=== PATIENT | male | born 1965 | race Caucasian/White ===

== ENCOUNTER 2017-08-02 17:45 | Inpatient (IN) | payer OTHER ==
--- NOTE | 2017-08-02 18:09 | PDOC ---
History of Present Illness - General History Source: Patient Exam Limitations: No Limitations - History of Present Illness Initial Comments: 08/02/17 19:03 Patient is a 52 year old male with a significant past medical history of who presents to the ED with complaints of left knee pain that began 2 days ago. Patient reports getting left knee surgery in [place]. He reports being prescribed pain Celebrex medication for knee but was instructed to double up on dosage. Patient states being 2 days without celebrex medication due to pharmacy not resupplying due to 30 day refill not being completed. He reports getting next dosage of medication friday morning after Physician sent new prescription to pharmacy. He reports left knee pain began night while at home. He reports knee increased in pain and redness friday afternoon. Patient is unable to put full weight onto left knee. Denies chest pain, SOB. Denies nausea, vomiting. Denies fevers, chills. Denies secondary trauma to left knee. Denies any other symptoms. Allergies: None Social history: Lives with . Former smoker. No alcohol. No illicit drugs. Surgical history: Left whole need surgery. PMD: None <Dru Tsai - Last Filed: 08/02/17 19:03> <Stephany Lopes - Last Filed: 08/03/17 08:51> - General Chief Complaint: Revisit,Wound Recheck Stated Complaint: LEFT KNEE WOUND CHECK Time Seen by Provider: 08/02/17 17:47 Past History <Dru Tsai - Last Filed: 08/02/17 19:03> - Past Medical History Anemia: No Asthma: No Cancer: No Cardiac Disorders: No CVA: No COPD: No CHF: No Dementia: No Diabetes: No GI Disorders: No Disorders: No HTN: Yes Hypercholesterolemia: No Liver Disease: No Seizures: No Thyroid Disease: No - Surgical History Abdominal Surgery: No Appendectomy: No Cardiac Surgery: No Cholecystectomy: No Lung Surgery: No Neurologic Surgery: No Orthopedic Surgery: Yes (ORIF Right Radius,Preston Knee Arthroscopies) - Suicide/Smoking/Psychosocial Hx Smoking History: Former smoker Have you smoked in the past 12 months: No If you are a former smoker, when did you quit?: 1998 Hx Alcohol Use: Yes ("3 OR 4 BEERS A NIGHT") Drug/Substance Use Hx: No Substance Use Type: Alcohol Hx Substance Use Treatment: No <Stephany Lopes - Last Filed: 08/03/17 08:51> - Past Medical History Allergies/Adverse Reactions: Allergies Allergy/AdvReac Type Severity Reaction Status Date / Time No Known Allergies Allergy Verified 08/02/17 18:03 Home Medications: Ambulatory Orders Hydrocodone/Acetaminophen [Lortab 10-325 mg Tablet] 1 each PO Q8H PRN 07/03/16 Lisinopril/Hydrochlorothiazide [Lisinopril-Hctz 20-12.5 mg Tab] 1 each PO DAILY 07/03/16 Famotidine [Pepcid -] 20 mg PO BID 05/26/17 Celecoxib [Celebrex] 200 mg PO BID 08/02/17 Docusate Sodium [Colace -] 100 mg PO BID 08/02/17 Review of Systems - Review of Systems Able to Perform ROS?: Yes Comments:: 08/02/17 19:04 GENERAL/CONSTITUTIONAL: No fever or chills. No weakness. HEAD, EYES, EARS, NOSE AND THROAT: No change in vision. No ear pain or discharge. No sore throat. GASTROINTESTINAL: No nausea, vomiting, diarrhea or constipation. GENITOURINARY: No dysuria, frequency, or change in urination. CARDIOVASCULAR: No chest pain or shortness of breath. RESPIRATORY: No cough, wheezing, or hemoptysis. MUSCULOSKELETAL: +Left knee pain. No joint or muscle swelling or pain. No neck or back pain. SKIN: No rash NEUROLOGIC: No headache, vertigo, loss of consciousness, or change in strength/ sensation. ENDOCRINE: No increased thirst. No abnormal weight change. HEMATOLOGIC/LYMPHATIC: No anemia, easy bleeding, or history of blood clots. ALLERGIC/IMMUNOLOGIC: No hives or skin allergy. All Other Systems: Reviewed and Negative <Dru Tsai - Last Filed: 08/02/17 19:03> *Physical Exam - Vital Signs Last Vital Signs Temp Pulse Resp BP Pulse Ox 98.2 F 88 17 139/96 98 08/02/17 17:46 08/02/17 17:46 08/02/17 17:46 08/02/17 17:46 08/02/17 17:46 - Physical Exam Comments: 08/02/17 19:08 GENERAL: Awake, alert, and fully oriented, in no acute distress HEAD: No signs of trauma EYES: PERRLA, EOMI, sclera anicteric, conjunctiva clear ENT: Auricles normal inspection, hearing grossly normal, nares patent, oropharynx clear without exudates. Moist mucosa NECK: Normal ROM, supple, no lymphadenopathy, JVD, or masses LUNGS: Breath sounds equal, clear to auscultation bilaterally. No wheezes, and no crackles HEART: Regular rate and rhythm, normal S1 and S2, no murmurs, rubs or gallops ABDOMEN: Soft, nontender, normoactive bowel sounds. No guarding, no rebound. No masses EXTREMITIES: +Left leg redness and heat from proximal incision through the incision to the mid tibia. +Edema in left lower leg, trace but pitting. +Hot to touch. +Ambulate with limp with bailey. +Drainage at the distal end of incision. No lymphangitic spread proximally. no edema. No clubbing or cyanosis. No cords, NEUROLOGICAL: +Walk with limp Cranial nerves II through XII grossly intact. Normal speech, SKIN: Warm, Dry, normal turgor, no rashes or lesions noted. <Dru Tsai - Last Filed: 08/02/17 19:03> ED Treatment Course - LABORATORY CBC & Chemistry Diagram: 08/03/17 06:00 08/02/17 19:05 <Stephany Lopes - Last Filed: 08/03/17 08:51> Medical Decision Making - Medical Decision Making 08/02/17 18:15 a/p: 52yo male with recent L knee replacement with dr. salinas -now with redness and serous drainage from the wound -renes from proximal incision down to mid tibia -swelling of the knee -no fluctuance or crepitus -case discussed with DR. Salinas who will be in to eval the patient 08/02/17 18:31 Dr. Salinas at the bedside 08/02/17 18:[address] Salinas who requests the patient be admitted to [facility] for IV abx. <Stephany Lopes - Last Filed: 08/03/17 08:51> *DC/Admit/Observation/Transfer - Attestations Scribe Attestion: 08/02/17 19:08 Documentation prepared by Dru Tsai, acting as emergency medical technician/driver for Stephany Lopes DO, MD/. <Dru Tsai - Last Filed: 08/02/17 19:03> - Discharge Dispostion Admit: Yes - Attestations Physician Attestion: 08/03/17 08:51 I, Dr. Stephany Lopes DO, attest that this document has been prepared under my direction and personally reviewed by me in its entirety. I further attest, that it accurately reflects all work, treatment, procedures and medical decision -making performed by me. <Stephany Lopes - Last Filed: 08/03/17 08:51> Diagnosis at time of Disposition: Cellulitis of knee, left - Discharge Dispostion Condition at time of disposition: Good
[2017-08-02] MEDS ORDERED: VANCOMYCIN 1 GRAM (PRE-DOCKED) 1,000 MG/250 ML BAG IVPB ONE (18:55)
--- NOTE | 2017-08-02 19:08 | PDOC ---
*Physical Exam - Vital Signs Last Vital Signs Temp Pulse Resp BP Pulse Ox 98.2 F 88 17 139/96 98 08/02/17 17:46 08/02/17 17:46 08/02/17 17:46 08/02/17 17:46 08/02/17 17:46 ED Treatment Course - LABORATORY CBC & Chemistry Diagram: 08/02/17 19:05 08/02/17 19:05 Progress Note - Progress Note Progress Note: Care of this patient was transferred to mo at [address] Lopes. Patient is a 52-year-old male who is status post knee surgery. Patient comes in with a cellulitis of his knee. Patient was seen by the orthopedist and a workup was initiated prior to his admission for IV antibiotics. Patient's workup showed a normal white count with no left shift. His chemistries were remarkable with the exception of a very mildly elevated glucose and slightly decreased sodium. Patient will be made to do an inpatient bed. Patient was given vancomycin here in the emergency room. *DC/Admit/Observation/Transfer Diagnosis at time of Disposition: Cellulitis of knee, left - Discharge Dispostion Condition at time of disposition: Good Admit: Yes - Referrals - Patient Instructions - Post Discharge Activity
[2017-08-02] MEDS ORDERED: VANCOMYCIN 1,000 MG VIAL (RESTRICTED TO ID ONLY) ONE (19:10)
[2017-08-02 19:47] LABS: ALBUMIN 3.3 g/dl (3.5-5.0); ALK PHOS 163 U/L (32-92); ANION GAP 6 (8-16); BILIRUBIN,TOTAL 1.5 mg/dl (0.2-1.0); CALCIUM 8.9 mg/dl (8.4-10.2); CO2 27 mmol/L (22-28); CREATININE 0.6 mg/dl (0.6-1.3); GLUCOSE,RANDOM 111 mg/dl (74-106); SGOT/AST 43 U/L (10-42); SGPT/ALT 26 U/L (10-40)
[2017-08-02 19:58] LABS: BASOPHIL 4.8 % (0-2.0); EOSINOPHIL 2.9 % (0-4.5); MCH 35.6 pg (25.7-33.7); MCHC 33.8 g/dl (32.0-35.9); MEAN CELL VOLUME 105.2 fl (80-96); MEAN PLT VOLUME 8.4 fl (7.5-11.1); PLATELET COUNT 122 K/MM3 (134-434); RDW 12.6 % (11.9-15.9); WHITE BLOOD COUNT 7.3 K/mm3 (4.0-10.8)
[2017-08-02 20:21] LABS: ACTIVATED PTT 32.6 SECONDS (24.0-38.9)
[2017-08-02 20:27] LABS: INR 1.59 (0.82-1.09); PROTHROMBIN TIME (PATIENT) 17.6 SEC (10.2-13.0)
[2017-08-02] MEDS ORDERED: ACETAMINOPHEN PO PRN (21:25)
[2017-08-02] MEDS ORDERED: HYDROCODONE PO PRN (21:25)
[2017-08-02] MEDS ORDERED: [UNRECOGNIZED DRUG - OTHER] PO PRN (21:25)
[2017-08-02 21:54] LABS: PH,URINE 5.5 (4.5-8); URINE APPEARANCE Clear; URINE BILIRUBIN Negative (NEGATIVE); URINE BLOOD Negative (NEGATIVE); URINE GLUCOSE (UA) Negative (NEGATIVE); URINE KETONE Negative (NEGATIVE); URINE LEUK ESTERASE Negative (NEGATIVE); URINE NITRITE Negative (NEGATIVE); URINE PROTEIN Negative (NEGATIVE)
[2017-08-02 21:55] LABS: URINE COLOR YELLOW
--- NOTE | 2017-08-02 22:07 | HP ---
Admitting History and Physical - Admission Chief Complaint: left knee cellulitis History of Present Illness: 52 yo obese M w hx of htn, hep c (planning tx), left knee replacement, right forearm fracture s/p repair, collar bone fracture, left knee arthroscopic surgery x 2, right knee arthroscopic surgery who presents to the Er for worsening swelling, pain, drainage and redness to left knee. Patient reports onset of symptoms 3 days ago after working out his left leg on a machine. he was prescribed dicloxacillin by his surgeon on Friday with little improvement. He states he has 4-5/10 dull pain to the left knee which is relieved with oxycodone. he also reports getting a Left leg venous US 1.5 weeks ago which was negative since stopping ASA. He reports having mild left calf pain for several days. He denies any associated nausea, vomiting, fevers, chills , diarrhea. He denies sob, chest pain, heart palps, dizziness. PMH/PSH- htn, hep c (planning tx), left knee replacement, right forearm fracture s/p repair, collar bone fracture, left knee arthroscopic surgery x 2, right knee arthroscopic surgery Social- 1 drink nightly. denies recreation drugs Famhx- NC Pex General- in nad, alert, obese Hent- at/nc, brigitte, neck supple, trachea midline Resp- no cough, no ronchi, no cyanosis, no accessory muscle use, no ronchi, no wheeze Cards- S1s2 heard, no JVD, left lower leg edema +2 GI- non-tender, no guarding, no rebound, no distention Musk- limited arom left knee, knee swelling and redness Neuro- cn2-12 grossly intact, speech clear, no facial droop Psych- cooperative, no agitation skin- open area to left lower knee with scabbing, increased warmth and redness from proximal knee to upper tibia, no drainage PCP- DR Merritt, [facility]- Dr Archer Ros neg except for HPI Prob list Left lower leg cellulitis HTN Hyponatremia A/P- 52 yo obese M w hx of htn, hep c (planning tx), left knee replacement, right forearm fracture s/p repair, collar bone fracture, left knee arthroscopic surgery x 2, right knee arthroscopic surgery who presents to the Er for worsening swelling, pain and redness to left knee found to have left lower leg cellulitis. 1. Left lower leg cellulitis s/p knee replacement- Started on Vanco. Seen by Dr Archer (ortho) in ER. Knee xray and doppler of leg pending. Continue pain control, leg elevation. Monitor inflammatory markers. F/U cultures. ID consult pending. 2. HTN ( controlled)- Cont home meds 3. Hyponatremia (mild)- Possibly med induced(HCTZ). Monitor BMP. DVT prophy R leg SCD, OOB Hep SQ FEN Low salt Dispo- >2mn stay for acute cellulitis of leg lower leg. History Source: Patient Limitations to Obtaining History: No Limitations - Smoking History Smoking history: Former smoker Have you smoked in the past 12 months: No If you are a former smoker, when did you quit?: 1998 - Alcohol/Substance Use Hx Alcohol Use: Yes ("3 OR 4 BEERS A NIGHT") Home Medications - Allergies Allergies/Adverse Reactions: Allergies Allergy/AdvReac Type Severity Reaction Status Date / Time No Known Allergies Allergy Verified 08/02/17 18:03 - Home Medications Home Medications: Ambulatory Orders Hydrocodone/Acetaminophen [Lortab 10-325 mg Tablet] 1 each PO Q8H PRN 07/03/16 Lisinopril/Hydrochlorothiazide [Lisinopril-Hctz 20-12.5 mg Tab] 1 each PO DAILY 07/03/16 Famotidine [Pepcid -] 20 mg PO BID 05/26/17 Celecoxib [Celebrex] 200 mg PO BID 08/02/17 Docusate Sodium [Colace -] 100 mg PO BID 08/02/17 Physical Examination Vital Signs: Vital Signs Temperature 98.5 F 08/02/17 20:29 Pulse Rate 80 08/02/17 20:29 Respiratory Rate 16 08/02/17 20:29 Blood Pressure 140/90 08/02/17 20:29 O2 Sat by Pulse Oximetry (%) 97 08/02/17 20:29 Labs: CBC, BMP 08/02/17 19:05 08/02/17 19:05 Visit type - Emergency Visit Emergency Visit: Yes ED Registration Date: 08/02/17 Care time: The patient presented to the Emergency Department on the above date and was hospitalized for further evaluation of their emergent condition. - New Patient This patient is new to me today: Yes Date on this admission: 08/04/17 - Critical Care Critical Care patient: No
--- NOTE | 2017-08-02 23:13 | CON.ORTH ---
Consult Consult Specialty:: Orthopedics Reason for Consultation:: Cellulitis s/p Left TKA - History of Present Illness Chief Complaint: Redness and Drainage Left knee - History Source History Provided By: Patient Limitations to Obtaining History: No Limitations - Past Medical History Hepatobiliary: Yes: Hepatitis C Heme/Onc: Yes: Bleeding Disorder, Thrombocytopenia - Alcohol/Substance Use Hx Alcohol Use: Yes ("3 OR 4 BEERS A NIGHT") - Smoking History Smoking history: Former smoker Have you smoked in the past 12 months: No If you are a former smoker, when did you quit?: 1998 Home Medications - Allergies Allergies/Adverse Reactions: Allergies Allergy/AdvReac Type Severity Reaction Status Date / Time No Known Allergies Allergy Verified 08/02/17 18:03 - Home Medications Home Medications: Ambulatory Orders Hydrocodone/Acetaminophen [Lortab 10-325 mg Tablet] 1 each PO Q8H PRN 07/03/16 Lisinopril/Hydrochlorothiazide [Lisinopril-Hctz 20-12.5 mg Tab] 1 each PO DAILY 07/03/16 Famotidine [Pepcid -] 20 mg PO BID 05/26/17 Celecoxib [Celebrex] 200 mg PO BID 08/02/17 Docusate Sodium [Colace -] 100 mg PO BID 08/02/17 Physical Exam for Ortho Vital Signs: Vital Signs Temperature 98.5 F 08/02/17 20:29 Pulse Rate 80 08/02/17 20:29 Respiratory Rate 16 08/02/17 20:29 Blood Pressure 140/90 08/02/17 20:29 O2 Sat by Pulse Oximetry (%) 97 08/02/17 20:29 Extremities: Yes: Other (Mild soft tissue swelling, ROM 0-80 degrees, minimal effusion, non-tender) Wound/Incision: Yes: Reddened, Excoriated, Other (Area of incisional erythema proxima end, and also distal end with wound eschar and scant draingage.) Labs: CBC, BMP 08/02/17 19:05 08/02/17 19:05 INR, PTT INR 1.59 (0.82-1.09) H 08/02/17 19:45 - Lower Extremity Knee: Yes: Left, Limited ROM, Swelling - Affected Extremity Motor Strength: 5/5: Left Leg Peripheral Pulses WNL: Yes Assessment/Plan 1) Intravenous Vancomycin 2) ID consult 3) Local wound care/warm compresses 4) Repeat CBC, ESR tomorrow
[2017-08-02 23:52] VITALS: BMI 34.3
[2017-08-03] MEDS: oxyCODONE HCL 5 MG TABLET PO PRN ×2 (00:08→20:17)
[2017-08-03] MEDS: FAMOTIDINE 20 MG TABLET PO SCH ×2 (00:09→10:10)
[2017-08-03] MEDS: DOCUSATE SODIUM 100 MG CAPSULE (FP) PO SCH ×3 (00:09→21:32)
--- NOTE | 2017-08-03 07:58 | PN ---
Physical Exam: SUBJECTIVE: Patient seen and examined this AM at bedside for left knee cellulitis with +instrumentation placement in knee. Pt states he has minimal pain right now, left knee he feels looks better and less red. OBJECTIVE: Vital Signs Period Temp Pulse Resp BP Sys/Leary Pulse Ox Last 24 Hr 98.0 F-98.6 F 80-95 16-20 124-150/72-96 95-98 GENERAL: The patient is awake, alert, and fully oriented, in no acute distress. LUNGS: Breath sounds equal, clear to auscultation bilaterally, no wheezes, no crackles, no accessory muscle use. HEART: Regular rate and rhythm, S1, S2 without murmur, rub or gallop. ABDOMEN: Soft, nontender, nondistended, normoactive bowel sounds, no guarding, no rebound, no hepatosplenomegaly, no masses. EXTREMITIES: 2+ pulses, warm, well-perfused, Left knee marked with redness, two puncture sites that are draining serous drainage, + erythema, +edema. + distal pulse PMS+ NEUROLOGICAL: Cranial nerves II through XII grossly intact. Normal speech, gait not observed. PSYCH: Normal mood, normal affect. SKIN: Warm, dry, normal turgor, no rashes or lesions noted Laboratory Results - last 24 hr 08/02/17 08/02/17 08/02/17 19:05 19:05 19:05 WBC RBC Hgb Hct MCV MCH MCHC RDW Plt Count MPV Neutrophils % Lymphocytes % Monocytes % Eosinophils % Basophils % ESR PT with INR Cancelled INR Cancelled PTT (Actin FS) Cancelled Sodium 132 L Potassium 3.9 Chloride 99 Carbon Dioxide 27 Anion Gap 6 L BUN 11 Creatinine 0.6 Creat Clearance w eGFR > 60 Random Glucose 111 H Lactic Acid Cancelled Calcium 8.9 Total Bilirubin 1.5 H AST 43 H ALT 26 Alkaline Phosphatase 163 H C-Reactive Protein Total Protein 8.0 Albumin 3.3 L Urine Color Urine Appearance Urine pH Ur Specific [place] Urine Protein Urine Glucose (UA) Urine Ketones Urine Blood Urine Nitrite Urine Bilirubin Urine Urobilinogen Ur Leukocyte Esterase Blood Type Antibody Screen Spec Expiration Date 08/02/17 08/02/17 08/02/17 19:05 19:05 19:05 WBC 7.3 RBC 4.04 Hgb 14.4 Hct 42.5 MCV 105.2 H MCH 35.6 H MCHC 33.8 RDW 12.6 Plt Count 122 L MPV 8.4 Neutrophils % 57.0 Lymphocytes % 25.2 Monocytes % 10.1 Eosinophils % 2.9 Basophils % 4.8 H ESR PT with INR INR PTT (Actin FS) Sodium Potassium Chloride Carbon Dioxide Anion Gap BUN Creatinine Creat Clearance w eGFR Random Glucose Lactic Acid Calcium Total Bilirubin AST ALT Alkaline Phosphatase C-Reactive Protein 0.3 Total Protein Albumin Urine Color Urine Appearance Urine pH Ur Specific [place] Urine Protein Urine Glucose (UA) Urine Ketones Urine Blood Urine Nitrite Urine Bilirubin Urine Urobilinogen Ur Leukocyte Esterase Blood Type Cancelled Antibody Screen Cancelled Spec Expiration Date Cancelled 08/02/17 08/02/17 08/02/17 19:05 19:15 19:30 WBC RBC Hgb Hct MCV MCH MCHC RDW Plt Count MPV Neutrophils % Lymphocytes % Monocytes % Eosinophils % Basophils % ESR 61 H PT with INR INR PTT (Actin FS) Sodium Potassium Chloride Carbon Dioxide Anion Gap BUN Creatinine Creat Clearance w eGFR Random Glucose Lactic Acid Calcium Total Bilirubin AST ALT Alkaline Phosphatase C-Reactive Protein Total Protein Albumin Urine Color Urine Appearance Urine pH Ur Specific [place] Urine Protein Urine Glucose (UA) Urine Ketones Urine Blood Urine Nitrite Urine Bilirubin Urine Urobilinogen Ur Leukocyte Esterase Blood Type B POSITIVE B POSITIVE Antibody Screen Negative Spec Expiration Date 08/02/17 08/02/17 08/02/17 19:45 19:45 21:30 WBC RBC Hgb Hct MCV MCH MCHC RDW Plt Count MPV Neutrophils % Lymphocytes % Monocytes % Eosinophils % Basophils % ESR PT with INR 17.6 H INR 1.59 H PTT (Actin FS) 32.6 Sodium Potassium Chloride Carbon Dioxide Anion Gap BUN Creatinine Creat Clearance w eGFR Random Glucose Lactic Acid 1.5 Calcium Total Bilirubin AST ALT Alkaline Phosphatase C-Reactive Protein Total Protein Albumin Urine Color Yellow Urine Appearance Clear Urine pH 5.5 Ur Specific [place] 1.025 Urine Protein Negative Urine Glucose (UA) Negative Urine Ketones Negative Urine Blood Negative Urine Nitrite Negative Urine Bilirubin Negative Urine Urobilinogen 1.0 Ur Leukocyte Esterase Negative Blood Type Antibody Screen Spec Expiration Date Laboratory Tests 08/03/17 08/03/17 08/03/17 06:00 06:00 07:00 WBC 5.3 Hgb 12.5 D Hct 35.5 D Plt Count 89 L D PT with INR 17.1 H INR 1.54 H Sodium 135 L Potassium 3.4 L Chloride 103 Carbon Dioxide 27 Anion Gap 5 L BUN 9 Creatinine 0.5 L Creat Clearance w eGFR > 60 Random Glucose 116 H Total Bilirubin 2.3 H D AST 33 D ALT 24 Alkaline Phosphatase 140 H Total Protein 6.6 Albumin 2.8 L Active Medications Generic Name Dose Route Start Last Admin Trade Name Freq PRN Reason Stop Dose Admin Docusate Sodium 100 mg 08/02/17 22:00 08/03/17 00:09 Colace - PO 100 mg BID KATELYN Administration Famotidine 20 mg 08/02/17 22:00 08/03/17 00:09 Pepcid - PO 20 mg BID KATELYN Administration Heparin Sodium (Porcine) 5,000 unit 08/03/17 10:00 Heparin - SQ Q8H-IV KATELYN Hydrochlorothiazide 12.5 mg 08/03/17 10:00 Hctz - PO DAILY KATELYN Vancomycin HCl 1,000 mg/ 250 mls @ 250 mls/hr 08/03/17 07:00 Dextrose IVPB BID ON LICENSE OF [facility] Protocol Lisinopril 20 mg 08/03/17 10:00 Prinivil PO DAILY ON LICENSE OF [facility] Non-Formulary Medication 1 each 08/02/17 21:25 Hydrocodone/Acetaminophen [Lortab 10-325 Mg Tablet] PO Q8H PRN PAIN Oxycodone HCl 10 mg 08/03/17 00:01 08/03/17 00:08 Roxicodone - PO 10 mg Q4H PRN Administration PAIN ASSESSMENT/PLAN: This 52 yr old male with left knee cellulitis post knee replacement. Pt in for IV ABT and following orthopedic for evaluation of knee. Problem List - Problems (1) Hyponatremia Assessment/Plan: -currently stable at 135 -will continue to monitor Code(s): E87.1 - HYPO-OSMOLALITY AND HYPONATREMIA (2) Hep C w/o coma, chronic Assessment/Plan: -stable currently pt states he is scheduled for an OP work up for treatment Code(s): B18.2 - CHRONIC VIRAL HEPATITIS C (3) Cellulitis of knee, left Assessment/Plan: -left leg marked with showing no further growth past lines -continue with Vanco, notified ID for consult for continuing vanco -ID consult pending -Vanco trough for 4th dose ordered -ortho for recommendations of WBS and PT recs. -currently primary bedrest with knee elevated. Code(s): L03.116 - CELLULITIS OF LEFT LOWER LIMB (4) Platelet count less 100,000 per cubic millimeter Assessment/Plan: -noted drop in platelets -d/c'd heparin for now -HIT series ordered -SCD ordered while on bedrest Code(s): D69.6 - THROMBOCYTOPENIA, UNSPECIFIED Visit type - Emergency Visit Emergency Visit: Yes ED Registration Date: 08/02/17 Care time: The patient presented to the Emergency Department on the above date and was hospitalized for further evaluation of their emergent condition. - New Patient This patient is new to me today: Yes Date on this admission: 08/03/17 - Critical Care Critical Care patient: No
[2017-08-03 08:45] LABS: BASOPHIL 1.6 % (0-2.0); EOSINOPHIL 4.7 % (0-4.5); MCH 37.4 pg (25.7-33.7); MCHC 35.3 g/dl (32.0-35.9); MEAN PLT VOLUME 8.8 fl (7.5-11.1); NEUTROPHILS 48.5 % (42.8-82.8); PLATELET COUNT 89 K/MM3 (134-434); RDW 12.7 % (11.9-15.9); WHITE BLOOD COUNT 5.3 K/mm3 (4.0-10.8)
[2017-08-03 08:48] LABS: INR 1.54 (0.82-1.09); PROTHROMBIN TIME (PATIENT) 17.1 SEC (10.2-13.0)
[2017-08-03 09:22] LABS: ALBUMIN 2.8 g/dl (3.5-5.0); ALK PHOS 140 U/L (32-92); ANION GAP 5 (8-16); BILIRUBIN,TOTAL 2.3 mg/dl (0.2-1.0); CALCIUM 8.2 mg/dl (8.4-10.2); CO2 27 mmol/L (22-28); CREATININE 0.5 mg/dl (0.6-1.3); GLUCOSE,RANDOM 116 mg/dl (74-106); SGOT/AST 33 U/L (10-42); SGPT/ALT 24 U/L (10-40); TOT PROT 6.6 g/dl (6.4-8.3)
[2017-08-03 09:31] LABS: ERYTHROCYTE SEDIMENTATION RATE 35 mm/hr (0-20)
[2017-08-03] MEDS ORDERED: PATIENT'S OWN MEDICATION (NON-FORMULARY) (Lisinopril/Hydrochlorothiazide [Lisinopril-Hctz PO SCH (10:00)
[2017-08-03] MEDS ORDERED: HEPARIN NA (PORCINE) 5,000 UNITS/ML 1ML VIAL SQ SCH (10:00)
[2017-08-03] MEDS: HYDROCHLOROTHIAZIDE 12.5 MG CAPSULE (FP) PO SCH (10:09)
[2017-08-03] MEDS: LISINOPRIL 20 MG TABLET (FP) PO SCH (10:10)
--- NOTE | 2017-08-03 12:10 | PN ---
Progress Note, Physician Chief Complaint: ID Full consult dictated Total knee replacement Lt at [facility] about a month ago. Presents redness now with tenderness for over a week. Denies fever chills history of DM Lives in [place]. Has pets at home cats and a dog. No travel. He has hepatitis C ? cirrhosis about to start Hep C therapy Apparently draining yesterday Wound c/s Was on Diclox [employer] - Current Medication List Current Medications: Active Medications Docusate Sodium (Colace -) 100 mg PO BID [facility] Last Admin: 08/03/17 10:09 Dose: 100 mg Hydrochlorothiazide (Hctz -) 12.5 mg PO DAILY [facility] Last Admin: 08/03/17 10:09 Dose: 12.5 mg Vancomycin HCl 1,750 mg/ (Dextrose) 500 mls @ 250 mls/hr IVPB BID@0000,1200 [facility] PRN Reason: Protocol Lisinopril (Prinivil) 20 mg PO DAILY [facility] Last Admin: 08/03/17 10:10 Dose: 20 mg Non-Formulary Medication (Hydrocodone/Acetaminophen [Lortab 10-325 Mg Tablet]) 1 each PO Q8H PRN PRN Reason: PAIN Oxycodone HCl (Roxicodone -) 10 mg PO Q4H PRN PRN Reason: PAIN Last Admin: 08/03/17 00:08 Dose: 10 mg Pantoprazole Sodium (Protonix -) 40 mg PO DAILY [facility] - Objective Vital Signs: Vital Signs Temperature 98.6 F 08/03/17 06:52 Pulse Rate 80 08/03/17 06:52 Respiratory Rate 20 08/03/17 06:52 Blood Pressure 124/72 08/03/17 06:52 O2 Sat by Pulse Oximetry (%) 95 08/03/17 06:52 Constitutional: Yes: Well Nourished, No Distress HENT: Yes: WNL, Atraumatic Neck: Yes: WNL, Supple Cardiovascular: Yes: Regular Rate and Rhythm, S1, S2. No: Murmur Respiratory: Yes: WNL, Regular, CTA Bilaterally Gastrointestinal: Yes: Soft Extremities: Yes: Erythema, Other (Left knee eschars above and below the knee no drainage knee is swollen ? 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) Code(s): B19.20 - UNSPECIFIED VIRAL HEPATITIS C WITHOUT HEPATIC COMA; K74.69 - OTHER CIRRHOSIS OF LIVER (2) Platelet count less 100,000 per cubic millimeter Code(s): D69.6 - THROMBOCYTOPENIA, UNSPECIFIED Assessment/Plan Microbiology Laboratory Tests 08/02/17 08/02/17 08/03/17 19:05 19:05 06:00 WBC 5.3 Hgb 12.5 D Hct 35.5 D Plt Count 122 L 89 L D Neutrophils % 48.5 Lymphocytes % 34.1 D Eosinophils % 4.7 H ESR 61 H 35 H INR 08/03/17 07:00 WBC Hgb Hct Plt Count Neutrophils % Lymphocytes % Eosinophils % ESR INR 1.54 H Assessment S/P TKR with complicating cellulitis with recent new prosthesis with underlying Hep C related cirrhosis Plan Vancomcyin and Cefepime pending culture wound blood CRP Wouldplan for a PICC line for few weeks of IV therapy Jak BARRETO
[2017-08-03] MEDS: VANCOMYCIN 1,750 MG in DEXTROSE 5%-WATER - 500 ML IVPB SCH (12:14)
[2017-08-03] MEDS ORDERED: CEFEPIME 2 GM in DEXTROSE 5%-WATER - 100 ML IVPB SCH (12:30)
[2017-08-03] MEDS ORDERED: PICC LINE 8 ML FLUSH PROTOCOL IVPUSH PRN (12:39)
[2017-08-03] MEDS: CEFEPIME 2 GM in DEXTROSE 5%-WATER - 100 ML IVPB SCH (15:18)
--- NOTE | 2017-08-03 16:56 | PN ---
Progress Note (short form) - Note Progress Note: ID note appreciated Erythema appears slightly improved from last night WBC 5.3 down from 7.3 ESR 35 down from 61 INR: 1.54 Plan: 1) c/w IV ABx as per ID 2) Repeat labs in AM 3) Warm moist compresses to left knee 4) Would dc lovenov and start ASA 325mg PO bid.
[2017-08-03] MEDS ORDERED: CEFEPIME HCL 2 GM VIAL (RESTRICTED TO ID) IVPB SCH (18:00)
--- NOTE | 2017-08-03 20:04 | CONS ---
DATE OF CONSULTATION: DATE OF DICTATION: 08/03/2017 This is a 52-year-old male with a history of hepatitis C who I am asked to see for evaluation of a skin infection with cellulitis of the left knee after orthopedic surgery with total knee replacement. The patient has a history of severe trauma dating back many years ago, during which he had a forearm fracture with prosthesis and sustained trauma to the left knee. He had had 2 orthopedic procedures over the years with Dr. Lowery and recently, it was decided to take him to the operating room for a total knee replacement. The patient lives in [place] but decided to have the surgery in [place] and ultimately ended up having a total knee replacement at a hospital in [place] about a month ago. He states the procedure went uneventfully. He has, however, noted that for over a week, he has seen the progression of redness, swelling and tenderness involving the left knee with some drainage. He denies fever or chills. He apparently was given dicloxacillin by his surgeon several days ago without any improvement and is admitted for further evaluation. He is afebrile here and was given a dose of vancomycin. He is not diabetic and admits to having hepatitis C acquired from a blood transfusion related to his orthopedic trauma and is a candidate now for hepatitis C therapy which is scheduled but has not yet been administered. He is not diabetic, has no history of travel, lives with his , actively working. Notes that he has pets including cats and a dog at home with which he has daily contact. He has no history of any other systemic symptoms, shortness of breath, cough, abdominal pain or diarrhea. PAST MEDICAL HISTORY: Includes recent left knee replacement, right forearm fracture with hardware, hepatitis C with possible cirrhosis. FAMILY HISTORY: Positive for diabetes mellitus. REVIEW OF SYSTEMS:Respiratory: No cough or shortness of breath. Cardiac: No chest pain, palpitations, history of heart surgery, prosthetic valve or stents. Gastrointestinal: No recent weight loss, abdominal pain, nausea, vomiting, jaundice. Genitourinary: No dysuria, hematuria, urinary frequency. PHYSICAL EXAMINATION: General: He was an alert male in no acute distress. Vital Signs: Temperature was 98.6, pulse 80, blood pressure 124/72, respirations 20. Neck: Supple. No adenopathy.Lungs: Clear to percussion and auscultation. Heart: S1, S2. Regular rhythm without audible murmur or gallop. Abdomen: Soft, nontender without hepatosplenomegaly. Extremities: Revealed diffuse swelling of the left knee which was hot to palpation. The incision was healed, but above and below the knee were 2 eschars from recent surgery which apparently had drainage noted on admission last night, though none now. There was no fluctuance present. The left knee appeared mildly swollen but I could not be certain of a knee effusion. His white count is 5.3, hemoglobin 12.5, platelets of 89,000. The sedimentation rate 61 on admission. BUN of 9, creatinine 0.5. Bilirubin 2.3, AST 34, alkaline phosphatase 140. CRP 0.3. Urinalysis screening negative. Two sets of blood cultures pending, no growth. Wound culture pending. X-ray of the knee was reviewed. Showed no acute pathology, intact knee replacement. ASSESSMENT: Severe cellulitis of the left knee with a recent total knee replacement approximately 1 month ago. No improvement with 2-3 days of oral antibiotics with dicloxacillin. The possibilities include staphylococcal and streptococcal infection. However, given his history of hepatitis C and suspected cirrhosis, I would also consider that he is immunocompromised and broaden the coverage for gram-negative organisms as well. I will empirically treat him with a combination of vancomycin based on body weight of 274 pounds with the addition of cefepime 2 g IV q.8 hours pending final blood and urine cultures. Given the severity of the infection and the recent prosthesis, I would recommend insertion of a PICC line for anticipated long-term, possibly 4 weeks, of antibiotics. While I cannot be sure the prosthesis is infected, I would prefer to aggressively treat him now than to wait and find a problem later on down the road should infection recur. JONN RUTHERFORD M.D. [id number]
[2017-08-04] MEDS: VANCOMYCIN 1,750 MG in DEXTROSE 5%-WATER - 500 ML IVPB SCH ×2 (00:34→13:33)
[2017-08-04] MEDS: CEFEPIME 2 GM in DEXTROSE 5%-WATER - 100 ML IVPB SCH ×3 (03:00→18:30)
[2017-08-04 08:23] LABS: ACTIVATED PTT 33.7 SECONDS (24.0-38.9)
[2017-08-04 08:27] LABS: ALBUMIN 2.7 g/dl (3.5-5.0); ALK PHOS 145 U/L (32-92); ANION GAP 5 (8-16); BILIRUBIN,TOTAL 1.6 mg/dl (0.2-1.0); CALCIUM 8.4 mg/dl (8.4-10.2); CO2 25 mmol/L (22-28); CREATININE 0.6 mg/dl (0.6-1.3); GLUCOSE,RANDOM 143 mg/dl (74-106); SGOT/AST 34 U/L (10-42); SGPT/ALT 22 U/L (10-40); TOT PROT 6.8 g/dl (6.4-8.3)
[2017-08-04 08:28] LABS: INR 1.58 (0.82-1.09); PROTHROMBIN TIME (PATIENT) 17.5 SEC (10.2-13.0)
--- NOTE | 2017-08-04 08:29 | EKG ---
Test Reason : Blood Pressure : / mmHG Vent. Rate : 087 BPM Atrial Rate : 087 BPM P-R Int : 166 ms QRS Dur : 088 ms QT Int : 402 ms P-R-T Axes : 043 032 031 degrees QTc Int : 483 ms NORMAL SINUS RHYTHM PROLONGED QT ABNORMAL ECG NO PREVIOUS ECGS AVAILABLE Confirmed by CONOR DAILEY MD ([id number] on 08/04/2017 8:29:33 AM Referred By: DR CHAIDEZ Confirmed By:CONOR DAILEY MD
[2017-08-04 08:40] LABS: EOSINOPHIL 4.3 % (0-4.5); MCHC 34.6 g/dl (32.0-35.9); MEAN CELL VOLUME 104.2 fl (80-96); MEAN PLT VOLUME 8.4 fl (7.5-11.1); NEUTROPHILS 52.5 % (42.8-82.8); PLATELET COUNT 89 K/MM3 (134-434); RDW 12.7 % (11.9-15.9); WHITE BLOOD COUNT 4.6 K/mm3 (4.0-10.8)
[2017-08-04] MEDS ORDERED: POTASSIUM CHLORIDE TABS 20 MEQ TABLET.ER (FP) PO ONE ×2 (09:30→13:35)
--- NOTE | 2017-08-04 09:34 | PN ---
Progress Note, Physician History of Present Illness: Resting in bed with L knee elevated on pillow Deneis any knee pain at present No fever/ chills BC prelim no growth Wound c/s pending - Current Medication List Current Medications: Active Medications Docusate Sodium (Colace -) 100 mg PO BID [facility] Last Admin: 08/03/17 21:32 Dose: 100 mg Hydrochlorothiazide (Hctz -) 12.5 mg PO DAILY [facility] Last Admin: 08/03/17 10:09 Dose: 12.5 mg IV Flush (Picc Line Flush) 8 ml IVPUSH PRN PRN PRN Reason: Protocol Vancomycin HCl 1,750 mg/ (Dextrose) 500 mls @ 250 mls/hr IVPB BID@0000,1200 KAT[facility]N PRN Reason: Protocol Last Admin: 08/04/17 00:34 Dose: 250 mls/hr Cefepime HCl 2 gm/ Dextrose 100 mls @ 200 mls/hr IVPB Q8H-IV [facility] Last Admin: 08/04/17 03:00 Dose: 200 mls/hr Lisinopril (Prinivil) 20 mg PO DAILY [facility] Last Admin: 08/03/17 10:10 Dose: 20 mg Non-Formulary Medication (Hydrocodone/Acetaminophen [Lortab 10-325 Mg Tablet]) 1 each PO Q8H PRN PRN Reason: PAIN Oxycodone HCl (Roxicodone -) 10 mg PO Q4H PRN PRN Reason: PAIN Last Admin: 08/03/17 20:17 Dose: 10 mg Pantoprazole Sodium (Protonix -) 40 mg PO DAILY [facility] Potassium Chloride (K-Dur -) 40 meq PO ONCE ONE Stop: 08/04/17 09:31 - Objective Vital Signs: Vital Signs Temperature 98.6 F 08/04/17 06:31 Pulse Rate 77 08/04/17 06:31 Respiratory Rate 18 08/04/17 08:59 Blood Pressure 124/76 08/04/17 06:31 O2 Sat by Pulse Oximetry (%) 95 08/04/17 08:59 Constitutional: Yes: No Distress Eyes: Yes: Conjunctiva Clear Cardiovascular: Yes: Regular Rate and Rhythm, S1, S2 Respiratory: Yes: CTA Bilaterally Gastrointestinal: Yes: Normal Bowel Sounds. No: Tenderness Extremities: Yes: Other (+ L knee swelling Erythema receding from traced out margins) Labs: CBC, BMP 12/04/17 07:45 08/04/17 07:45 INR, PTT INR 1.58 (0.82-1.09) H 08/04/17 07:45 Assessment/Plan Cellulitis L Knee Possible infected L TKR Diabetes mellitus HCV+ Await wound c/s Continue empiric vancomycin/ cefepime
[2017-08-04] MEDS ORDERED: ENOXAPARIN NA (PORCINE) 40 MG/0.4 ML DISP.SYRIN SQ SCH (10:00)
--- NOTE | 2017-08-04 12:48 | DS ---
Physical Exam: SUBJECTIVE: Patient seen and examined, ambulatory at bedside, steady gait is noted, denies any tactile fevers OBJECTIVE:52 yo obese M w hx of htn, hep c (planning tx), left knee replacement , right forearm fracture s/p repair, collar bone fracture, left knee arthroscopic surgery x 2, right knee arthroscopic surgery who presents to the Er for worsening swelling, pain, drainage and redness to left knee. Patient reports onset of symptoms 3 days ago after working out his left leg on a machine. he was prescribed dicloxacillin by his surgeon on Friday with little improvement. He states he has 4-5/10 dull pain to the left knee which is relieved with oxycodone. he also reports getting a Left leg venous US 1.5 weeks ago which was negative since stopping ASA. He reports having mild left calf pain for several days. He denies any associated nausea, vomiting, fevers, chills , diarrhea. He denies sob, chest pain, heart palps, dizziness. Vital Signs Period Temp Pulse Resp BP Sys/Leary Pulse Ox Last 24 Hr 98.1 F-98.6 F 77-83 18-18 121-142/60-85 95-95 PHYSICAL EXAM GENERAL: The patient is awake, alert, and fully oriented, in no acute distress. HEAD: Normal with no signs of trauma. EYES: PERRL, extraocular movements intact, sclera anicteric, conjunctiva clear. ENT: Ears normal, nares patent, oropharynx clear without exudates, moist mucous membranes. NECK: Trachea midline, full range of motion, supple. LUNGS: Breath sounds equal, clear to auscultation bilaterally, no wheezes, no crackles, no accessory muscle use. HEART: Regular rate and rhythm, S1, S2 without murmur, rub or gallop. ABDOMEN: Soft, nontender, nondistended, normoactive bowel sounds, no guarding, no rebound, no hepatosplenomegaly, no masses. EXTREMITIES: 2+ pulses, warm, well-perfused, no edema. LEFT KNEE EXTREMITY: 2 puncture wounds, slight erythema, with 2 cm of surrounding induration, no drainage noted, erythema is not extending past the midline. NEUROLOGICAL: Cranial nerves II through XII grossly intact. Normal speech, gait not observed. PSYCH: Normal mood, normal affect. SKIN: Warm, dry, normal turgor, no rashes or lesions noted. LABS Laboratory Results - last 24 hr 08/04/17 08/04/17 08/04/17 07:45 07:45 07:45 WBC 4.6 RBC 3.53 L Hgb 12.7 Hct 36.8 MCV 104.2 H MCH 36.0 H MCHC 34.6 RDW 12.7 Plt Count 89 L MPV 8.4 Neutrophils % 52.5 Lymphocytes % 30.9 Monocytes % 11.3 H Eosinophils % 4.3 Basophils % 1.0 PT with INR 17.5 H INR 1.58 H PTT (Actin FS) 33.7 Sodium Potassium Chloride Carbon Dioxide Anion Gap BUN Creatinine Creat Clearance w eGFR Random Glucose Calcium Total Bilirubin AST ALT Alkaline Phosphatase C-Reactive Protein Total Protein Albumin Random Vancomycin 19.889 08/04/17 08/04/17 07:45 07:45 WBC RBC Hgb Hct MCV MCH MCHC RDW Plt Count MPV Neutrophils % Lymphocytes % Monocytes % Eosinophils % Basophils % PT with INR INR PTT (Actin FS) Sodium 134 L Potassium 3.7 Chloride 104 Carbon Dioxide 25 Anion Gap 5 L BUN 11 D Creatinine 0.6 Creat Clearance w eGFR > 60 Random Glucose 143 H D Calcium 8.4 Total Bilirubin 1.6 H D AST 34 ALT 22 Alkaline Phosphatase 145 H C-Reactive Protein < 0.3 Total Protein 6.8 Albumin 2.7 L Random Vancomycin Microbiology 08/02/17 19:00 Knee - Left Gram Stain - Final 08/02/17 19:00 Knee - Left Wound Culture - Preliminary Presumptive Mssa (Pbp2a Neg) 08/02/17 19:15 Blood - Peripheral Venous Blood Culture - Preliminary NO GROWTH OBTAINED AFTER 24 HOURS, INCUBATION TO CONTINUE FOR 4 DAYS. 08/02/17 19:05 Blood - Peripheral Venous Blood Culture - Preliminary NO GROWTH OBTAINED AFTER 24 HOURS, INCUBATION TO CONTINUE FOR 4 DAYS. HOSPITAL COURSE: * cellulitis of the left knee, vancomycin (08/02-08/04), prelim cultures notable for mssa, ID Dr Santana consulted and followed the patient throughout admission. leukocytosis resolved and patient is afebrile. 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) (Acute) Hep C w/o coma, chronic (Acute) Hyponatremia (Acute) Platelet count less 100,000 per cubic millimeter (Acute) Condition: Improved - Instructions Diet, Activity, Other Instructions: - please followup with Dr Salinas within 1 week - continue ancef 1 gm three times a day for 6 weeks - resume all medications as prescribed - if any new or persistent symptoms develop please return to the emergency department Referrals: James Santana MD [Staff Physician] - Georges Salinas MD [Staff Physician] - Disposition: VNS/HOME HEALTH CARE - Home Medications Comprehensive Discharge Medication List: Ambulatory Orders Hydrocodone/Acetaminophen [Lortab 10-325 mg Tablet] 1 each PO Q8H PRN 07/03/16 Lisinopril/Hydrochlorothiazide [Lisinopril-Hctz 20-12.5 mg Tab] 1 each PO DAILY 07/03/16 Famotidine [Pepcid -] 20 mg PO BID 05/26/17 Celecoxib [Celebrex] 200 mg PO BID 08/02/17 Docusate Sodium [Colace -] 100 mg PO BID 08/02/17 This patient is new to me today: No Emergency Visit: Yes ED Registration Date: 08/02/17 Care time: The patient presented to the Emergency Department on the above date and was hospitalized for further evaluation of their emergent condition. Critical Care patient: No - Discharge Referral Referred to [facility] No
[2017-08-04] MEDS ORDERED: PT OWN MED DRAWER 7, Y5N ONE ×3 (13:14→23:48)
[2017-08-04] MEDS: DOCUSATE SODIUM 100 MG CAPSULE (FP) PO SCH ×2 (13:20→21:31)
[2017-08-04] MEDS: LISINOPRIL 20 MG TABLET (FP) PO SCH (13:20)
[2017-08-04] MEDS: PANTOPRAZOLE 40 MG TABLET (FP) PO SCH (13:20)
[2017-08-04] MEDS: HYDROCHLOROTHIAZIDE 12.5 MG CAPSULE (FP) PO SCH (13:20)
[2017-08-04] MEDS ORDERED: REFRIGERATED ANITBIOTICS ONE ×3 (13:29→23:49)
--- NOTE | 2017-08-04 19:17 | PN ---
Progress Note (short form) - Note Progress Note: Patient denies pain. Picc line placed today. Reviewed ABx with Dr. Santana Patient's left knee incision shows erthema resolving. Scant purulent d/c from inferior end of incision. Repeat wbc- 4.6, crp<0.3 Plan: Awaiting d/c disposition from social sciences chair. IV Abx regimen as per Dr. Santana. C/w local wound care.
[2017-08-04] MEDS: oxyCODONE HCL 5 MG TABLET PO PRN (21:31)
[2017-08-05] MEDS: VANCOMYCIN 1,750 MG in DEXTROSE 5%-WATER - 500 ML IVPB SCH
[2017-08-05] MEDS: CEFEPIME 2 GM in DEXTROSE 5%-WATER - 100 ML IVPB SCH ×2 (02:33→10:20)
[2017-08-05] MEDS ORDERED: PT OWN MED DRAWER 7, Y5N ONE ×2 (09:40→11:30)
[2017-08-05] MEDS: HYDROCHLOROTHIAZIDE 12.5 MG CAPSULE (FP) PO SCH (10:20)
[2017-08-05] MEDS: PANTOPRAZOLE 40 MG TABLET (FP) PO SCH (10:20)
[2017-08-05] MEDS: DOCUSATE SODIUM 100 MG CAPSULE (FP) PO SCH ×2 (10:20→21:39)
[2017-08-05] MEDS: LISINOPRIL 20 MG TABLET (FP) PO SCH (10:20)
[2017-08-05] MEDS: oxyCODONE HCL 5 MG TABLET PO PRN ×2 (10:35→21:39)
--- NOTE | 2017-08-05 11:18 | PN ---
Progress Note, Physician History of Present Illness: Less L knee pain Ambulatory Afebrile BC (-) Wound c/s MSSA - Current Medication List Current Medications: Active Medications Docusate Sodium (Colace -) 100 mg PO BID [facility] Last Admin: 08/05/17 10:20 Dose: 100 mg Hydrochlorothiazide (Hctz -) 12.5 mg PO DAILY [facility] Last Admin: 08/05/17 10:20 Dose: 12.5 mg IV Flush (Picc Line Flush) 8 ml IVPUSH PRN PRN PRN Reason: Protocol Last Admin: 08/05/17 10:48 Dose: 8 ml Vancomycin HCl 1,750 mg/ (Dextrose) 500 mls @ 250 mls/hr IVPB BID@0000,1200 KATELYN PRN Reason: Protocol Last Admin: 08/05/17 00:00 Dose: 250 mls/hr Cefepime HCl 2 gm/ Dextrose 100 mls @ 200 mls/hr IVPB Q8H-IV [facility] Last Admin: 08/05/17 10:20 Dose: 200 mls/hr Lisinopril (Prinivil) 20 mg PO DAILY [facility] Last Admin: 08/05/17 10:20 Dose: 20 mg Non-Formulary Medication (Hydrocodone/Acetaminophen [Lortab 10-325 Mg Tablet]) 1 each PO Q8H PRN PRN Reason: PAIN Oxycodone HCl (Roxicodone -) 10 mg PO Q4H PRN PRN Reason: PAIN Last Admin: 08/05/17 10:35 Dose: 10 mg Pantoprazole Sodium (Protonix -) 40 mg PO DAILY [facility] Last Admin: 08/05/17 10:20 Dose: 40 mg - Objective Vital Signs: Vital Signs Temperature 98.1 F 08/05/17 06:35 Pulse Rate 77 08/05/17 06:35 Respiratory Rate 19 08/05/17 06:35 Blood Pressure 129/77 08/05/17 06:35 O2 Sat by Pulse Oximetry (%) 96 08/04/17 22:39 Constitutional: Yes: No Distress Cardiovascular: Yes: Regular Rate and Rhythm, S1, S2 Respiratory: Yes: CTA Bilaterally Gastrointestinal: Yes: Normal Bowel Sounds, Soft Extremities: Yes: Other (decreased swelling and erythema L knee No wound drainage) Labs: CBC, BMP 08/04/17 07:45 08/04/17 07:45 INR, PTT INR 1.58 (0.82-1.09) H 08/04/17 07:45 Assessment/Plan Cellulitis L Knee Possible infected L TKR Diabetes mellitus HCV+ wound c/s MSSA Substitute cefazolin 2gm IVPB q8h PICC for outpatient cefazolin x 6w
[2017-08-05] MEDS: CEFAZOLIN 2 GM/D5W 2 GM/50 ML ML IVPB SCH (18:39)
[2017-08-06] MEDS: CEFAZOLIN 2 GM/D5W 2 GM/50 ML ML IVPB SCH ×2 (02:00→10:04)
[2017-08-06 05:27] VITALS: BP 130/80; PULSE 85; TEMP 98.6
--- NOTE | 2017-08-06 09:23 | HOSP ---
Subjective - Review of Symptoms Musculoskeletal: Yes: Other (left lower ext pain ) Physical Examination Vital Signs: Vital Signs Temperature 98.6 F 08/06/17 05:27 Pulse Rate 85 08/06/17 05:27 Respiratory Rate 18 08/06/17 05:27 Blood Pressure 130/80 08/06/17 05:27 O2 Sat by Pulse Oximetry (%) 96 08/06/17 05:27 Constitutional: Yes: Well Nourished, No Distress, Calm Eyes: Yes: WNL, Conjunctiva Clear, EOM Intact HENT: Yes: WNL, Atraumatic, Normocephalic Neck: Yes: WNL, Supple, Trachea Midline Cardiovascular: Yes: WNL, Regular Rate and Rhythm, S1, S2 Respiratory: Yes: WNL, Regular, CTA Bilaterally Gastrointestinal: Yes: WNL, Normal Bowel Sounds, Soft Renal/: Yes: WNL Breast(s): Yes: WNL Extremities: Yes: Other (left anterior knee no erythema noted, 2 puncture wound noted, no drainage noted. no induration no flatuance noted) Edema: No Peripheral Pulses WNL: Yes Peripheral Pulses: Left Radial: 4+, Right Radial: 4+, Left Doralis Pedis: 3+, Right Dorsalis Pedis: 3+, Left Femoral: 3+, Right Femoral: 3+ Wound/Incision: Yes: Other (left anterior knee, no erythema noted, wound well approximated, no drainage noted) Neurological: Yes: WNL, Alert, Oriented ...Motor Strength: WNL Psychiatric: Yes: WNL, Alert, Oriented Labs: CBC, BMP 08/04/17 07:45 08/04/17 07:45
--- NOTE | 2017-08-06 09:34 | PN ---
Progress Note, Physician History of Present Illness: No c/o L knee pain Ambulatory Afebrile BC (-) Wound c/s MSSA Tolerating cefazolin PICC inserted - Current Medication List Current Medications: Active Medications Docusate Sodium (Colace -) 100 mg PO BID [facility] Last Admin: 08/05/17 21:39 Dose: 100 mg Hydrochlorothiazide (Hctz -) 12.5 mg PO DAILY [facility] Last Admin: 08/05/17 10:20 Dose: 12.5 mg IV Flush (Picc Line Flush) 8 ml IVPUSH PRN PRN PRN Reason: Protocol Last Admin: 08/05/17 10:48 Dose: 8 ml Cefazolin Sodium/Dextrose (Ancef 2 Gm Premixed Ivpb -) 2 gm in 50 mls @ 100 mls /hr IVPB Q8H-IV [facility] Last Admin: 08/06/17 02:00 Dose: 100 mls/hr Lisinopril (Prinivil) 20 mg PO DAILY [facility] Last Admin: 08/05/17 10:20 Dose: 20 mg Non-Formulary Medication (Hydrocodone/Acetaminophen [Lortab 10-325 Mg Tablet]) 1 each PO Q8H PRN PRN Reason: PAIN Pantoprazole Sodium (Protonix -) 40 mg PO DAILY [facility] Last Admin: 08/05/17 10:20 Dose: 40 mg - Objective Vital Signs: Vital Signs Temperature 98.6 F 08/06/17 05:27 Pulse Rate 85 08/06/17 05:27 Respiratory Rate 18 08/06/17 05:27 Blood Pressure 130/80 08/06/17 05:27 O2 Sat by Pulse Oximetry (%) 96 08/06/17 05:27 Constitutional: Yes: No Distress Eyes: Yes: Conjunctiva Clear Cardiovascular: Yes: Regular Rate and Rhythm, S1, S2 Respiratory: Yes: CTA Bilaterally Gastrointestinal: Yes: Normal Bowel Sounds, Soft. No: Tenderness Extremities: Yes: Other (decreased erythema/ swelling L knee No wound drainage noted) Labs: CBC, BMP 08/04/17 07:45 08/04/17 07:45 INR, PTT INR 1.58 (0.82-1.09) H 08/04/17 07:45 Assessment/Plan Cellulitis L Knee Possible infected L TKR Diabetes mellitus HCV+ wound c/s MSSA Continue cefazolin 2gm IVPB q8h PICC for outpatient cefazolin x 6w
[2017-08-06] MEDS: DOCUSATE SODIUM 100 MG CAPSULE (FP) PO SCH (10:03)
[2017-08-06] MEDS: PANTOPRAZOLE 40 MG TABLET (FP) PO SCH (10:03)
[2017-08-06] MEDS: LISINOPRIL 20 MG TABLET (FP) PO SCH (10:03)
[2017-08-06] MEDS: HYDROCHLOROTHIAZIDE 12.5 MG CAPSULE (FP) PO SCH (10:04)
== END 2017-08-06 13:08 | disposition home health service (06) | DRG 349 ==
LOC: FER 17:45 → FM/S 21:31
PROVIDERS: ADMIT Internal Medicine; ATTEND Nurse Practitioner Family
PROC: 06H033Z Insertion of Infusion Device into Inferior Vena Cava, Percutaneous Approach (ICD-10-PCS; principal; 2017-08-04)
PROC: B519ZZA Fluoroscopy of Inferior Vena Cava, Guidance (ICD-10-PCS; 2017-08-04)
DX: T84.54XA Infection and inflammatory reaction due to internal left knee prosthesis, initial encounter (principal); Y83.8 Other surgical procedures as the cause of abnormal reaction of the patient, or of later complication, without mention of misadventure at the time of the procedure; L03.116 Cellulitis of left lower limb; K74.69 Other cirrhosis of liver; D69.6 Thrombocytopenia, unspecified; E87.1 Hypo-osmolality and hyponatremia; E11.9 Type 2 diabetes mellitus without complications; B18.2 Chronic viral hepatitis C; I10 Essential (primary) hypertension; B19.20 Unspecified viral hepatitis C without hepatic coma; E66.9 Obesity, unspecified; Z96.652 Presence of left artificial knee joint; Z68.33 Body mass index [BMI] 33.0-33.9, adult; Z87.891 Personal history of nicotine dependence
CPT/HCPCS: 36415; 36569; 73562-TC-LT; 77001-TC; 80053; 81003; 83605; 85025; 85610; 85651; 85730; 86022; 86140; 86850; 86900; 86901; 87040; 87070; 87186; 87205; 93005; 93971-TC; 97116-GP; 97162-GP; 99283-25; C1751; G0480; J1644